=== PATIENT | male | born 1990 | race Caucasian/White ===

== ENCOUNTER 2019-01-01 21:43 | Emergency (ER) | payer OTHER ==
[~2019-01-01] VITALS: Ht 188 cm; Wt 104.7 kg
[2019-01-01 22:15] LABS: CULTURE INDICATED? YES; MICROSCOPIC INDICATED
[2019-01-01] MEDS ORDERED: CEFTRIAXONE 1,000 MG IM ONE (23:00)
[2019-01-01] MEDS ORDERED: AZITHROMYCIN 500 MG TABLET PO ONE (23:00)
[2019-01-01] MEDS ORDERED: AZITHROMYCIN 250 MG TABLET ONE (23:19)
[2019-01-01] MEDS ORDERED: CEFTRIAXONE 1,000 MG ONE (23:19)
[2019-01-02 00:12] VITALS: BP 148/67
== END 2019-01-02 00:14 | disposition home or self-care (01) ==
LOC: ED 01-02 00:10
DX: N30.01 Acute cystitis with hematuria (principal)
CPT/HCPCS: 81001; 87077; 87086; 87186; 87491; 87591; 96372; 99283; J0696; 99285